=== PATIENT | female | born 2000 | race Caucasian/White ===

== ENCOUNTER 2025-06-02 08:55 | Emergency (ER) | payer BC, SELFPAY ==
--- NOTE | ~2025-06-02 | XR_ITS ---
EXAMINATION: XR hand RT min 3V, 06/02/2025 9:40 CDT HISTORY: tender 1st and 2nd metacarpal COMPARISON: No comparisons available. Findings: No acute fracture or malalignment. No significant degenerative changes. Soft tissues unremarkable. Impression: No acute fracture or malalignment. Reviewed, dictated and finalized at location A. Impression: No acute fracture or malalignment.
[2025-06-02 09:12] VITALS: BP 144/76; PULSE 92; RESP 18; TEMP 37.1; O2SAT 100
--- NOTE | 2025-06-02 09:38 | ED.EXTPRO ---
HPI - Extremity Problem General Chief complaint: Extremity Problem,Nontraumatic Stated complaint: RT Hand Pain Time Seen by Provider: 06/02/25 09:39 Source: patient Mode of arrival: ambulatory Limitations: no limitations History of Present Illness HPI Narrative: 24-year-old female presents with complaint of pain, swelling to the dorsal aspect of right hand for 2 days. Reports she woke up in the middle the night 2 nights ago with pain to right hand. Since then has had progressive increase in pain and swelling. Reports some mild redness. Denies injury. Unknown insect bite. Range of motion and distal neurovascularly intact. All systems reviewed and negative except as noted above. Related Data Allergies Allergy/AdvReac Type Severity Reaction Status Date / Time No Known Allergies Allergy Verified 06/02/25 09:30 PMFSH Comments At time of signature, agree with nursing past medical, surgical, social and family history. There is no relevant family history pertinent to the presenting complaint. Exam Narrative: GENERAL: This is a well-nourished, well-developed patient, in no apparent distress. HEAD: normocephalic, atraumatic. EYES: PERRL. Sclera clear/white. Vision is grossly intact. EARS: External ears normal NOSE: External nose normal NECK: Neck supple, non-tender without lymphadenopathy, masses or thyromegaly. CARDIOVASCULAR: Regular rate and rhythm without murmurs, gallops, or rubs. RESPIRATORY: Clear to auscultation. Breath sounds equal bilaterally. No wheezes, rales, or rhonchi. SKIN: warm, Dry, intact with no suspicious lesions or rash, good texture and turgor. NEURO: awake, alert, and oriented to person, place and time. There were no obvious focal neurologic abnormalities. EXTREMITIES: swelling, tenderness and mild erythema without warmth to dorsal aspect R hand. tender to 1st and 2nd metacarpal aspect. Course Course Level of Care: Express Care Visit Vital Signs Vital signs: Vital Signs Temperature 37.1 C 06/02/25 09:12 Pulse Rate 92 06/02/25 09:12 Respiratory Rate 18 06/02/25 09:12 Blood Pressure 144/76 H 06/02/25 09:12 Pulse Oximetry 100 06/02/25 09:12 Oxygen Delivery Room Air 06/02/25 09:12 Temperature 37.1 C 06/02/25 09:12 Pulse Rate 92 06/02/25 09:12 Respiratory Rate 18 06/02/25 09:12 Blood Pressure 144/76 H 06/02/25 09:12 Pulse Oximetry 100 06/02/25 09:12 Oxygen Delivery Room Air 06/02/25 09:12 Reviewed MDM - Extremity (Nontraumatic) MDM Narrative Medical decision making narrative: x-ray of right hand is negative for fracture. Range of motion and distal neurovascularly intact. Cellulitis versus insect bite. Will prescribe Medrol Dosepak, cephalexin. Patient agrees with plan of care. Patient given primary care referral paper for follow-up. Imaging Data My impression: agree with radiologist Radiologist's impression: EXAMINATION: XR hand RT min 3V, 06/02/2025 9:40 CDT HISTORY: tender 1st and 2nd metacarpal COMPARISON: No comparisons available. Findings: No acute fracture or malalignment. No significant degenerative changes. Soft tissues unremarkable. Impression: No acute fracture or malalignment. Discharge Plan Discharge Clinical Impression: Cellulitis of hand, right Patient Disposition: Home Condition: Stable Instructions: Antibiotic Form, Cellulitis (ED) Additional Instructions: the x-ray of your right hand was normal. Take medications as prescribed. Take ibuprofen or Tylenol every 6-8 hours as needed for pain. Apply ice as needed for pain. Elevate when at rest. Follow-up your primary care physician if symptoms are not improving. Patient Language: [place] Prescriptions: New cephalexin 500 mg capsule 500 mg PO QID 7 Days Qty: 28 0RF methylprednisolone [Medrol (Sae)] 4 mg tablets,dose pack See Rx Instructions PO .COMPLEX Qty: 21 0RF Rx Instructions: orally per package directions Follow-up/Referrals: PHYSICIAN,NETWORKING TECHNICIAN [Primary Care Provider, Internal Medicine] Time of Disposition: 10:10
== END 2025-06-02 10:18 | disposition home or self-care (01) ==
PROVIDERS: Emergency Provider Nurse Practitioner Family
DX: L03.113 Cellulitis of right upper limb (principal); E28.2 Polycystic ovarian syndrome; Z86.16 Personal history of COVID-19
CPT/HCPCS: 73130; 99203; G0463